=== PATIENT | female | born 1985 | race Caucasian/White ===

== ENCOUNTER 2023-05-12 22:01 | Emergency (ER) | payer SELFPAY ==
[2023-05-12 22:10] VITALS: BP 170/68; PULSE 118; RESP 20; TEMP 36.4; O2SAT 100; BMI 25.7
[2023-05-12 22:23] VITALS: BP 127/70; PULSE 116; RESP 20; TEMP 36.9; O2SAT 100
--- NOTE | 2023-05-12 22:35 | ED.GIBLEED ---
HPI - GI Bleed General Chief complaint: GI Bleed Stated complaint: Bleeding, symptoms from blood thinners Time Seen by Provider: 05/12/23 22:21 Source: patient Mode of arrival: ambulatory Limitations: no limitations History of Present Illness HPI Narrative: Patient comes to the emergency room complaining of abdominal pain in GI bleed. 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 Patient also has history of antiphospholipid antibody syndrome and sickle cell trait. Patient is on Eliquis for the above-mentioned reasons. Today, patient states that she was at work, she had a sudden gush of bright red blood per rectum and blood clots. Patient complaining of diffuse abdominal pain. Patient denies fever or chills. Related Data Allergies Allergy/AdvReac Type Severity Reaction Status Date / Time Iodinated Contrast Media Allergy Rash Verified 05/12/23 22:09 [IV Contrast Dye] morphine Allergy Rash Verified 05/12/23 22:09 Review of Systems Review of Systems: Constitutional : No Weight loss, No Fever, No Chills, No Night Sweats, No Fatigue, No Malaise ENT/Mouth : No Hearing loss, No Ear Pain, No Nasal Congestion, No Sinus Pain, No Hoarseness, No sore throat, No Rhinorrhea, No Swallowing Difficulty Eyes: No Eye Pain, No Swelling, No Redness, No Foreign Body, No Discharge, No Vision Changes Cardiovascular : No Chest Pain, No SOB, No Dyspnea on Exertion, No Orthopnea, No Edema, No Palpitations Respiratory : No Cough, No Sputum, No Wheezing, No Smoke Exposure, No Dyspnea Gastrointestinal : No Nausea, No Vomiting, No Diarrhea, complaining of diffuse abdominal pain, fresh red blood per rectum Genitourinary : no irregular bleeding, No Dysuria, No Urinary Frequency, No Hematuria, No Urinary Incontinence, No Urgency, No Flank Pain, No Urinary Flow Changes, No Hesitancy Musculoskeletal : No joint pain, No Myalgias, No Joint Swelling Skin : No Skin Lesions, No rash Neuro : No Weakness, No Numbness, No Paresthesias, No Loss of Consciousness, No Dizziness, No Headache Psych : No Anxiety/Panic, No Depression, No SI/HI/AH/VH, No Social Issues, Heme/Lymph: No Bruising, No Bleeding,No Lymphadenopathy Endocrine : No Polyuria, No Polydipsia, No Temperature Intolerance [facility] Past Medical History Medical History (Updated 05/13/23 @ 03:34 by Cassie Rosa MD) 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 Sickle cell trait Antiphospholipid syndrome Surgical History (Updated 05/12/23 @ 22:39 by Cassie Rosa MD) History of hysterectomy H/O resection of small bowel Social History Social History Alcohol intake: never Smoked in Last 30 Days: No Use of substances other than those prescribed or required for medical reasons: No Advance Directives: No Advance Directives Information Provided: Yes Patient : No Physical Exam Vital Signs: Vital Signs: Last Vital Signs Temp 98.5 F 05/13/23 00:06 Pulse 90 05/13/23 02:55 Resp 18 05/13/23 02:55 BP 103/64 05/13/23 02:55 Pulse Ox 97 05/13/23 02:55 O2 Del Method Room Air 05/13/23 02:55 BMI result Body Mass Index 25.7 Course Course Course Narrative: -patient states that she has history allergic reaction to iodine, rash. However, patient states that if she gets premedicated, she can tolerate contrast well. -this time, patient being premedicated with Solu-Medrol, Pepcid, Benadryl. Also receiving IV fluids and Dilaudid -all of patient's labs and imaging pending Medications Administered Discontinued Medications Generic Name Dose Route Start Last Admin Trade Name Zarina PRN Reason Stop Dose Admin Diphenhydramine HCl 50 mg 05/12/23 22:31 05/12/23 23:01 Diphenhydramine Hcl 50 Mg/Ml Vial IVPUSH 05/12/23 22:32 50 mg ONCE ONE Administration Diphenhydramine HCl 25 mg 05/13/23 00:35 05/13/23 00:53 Diphenhydramine Hcl 50 Mg/Ml Vial IVPUSH 05/13/23 00:36 25 mg ONCE ONE Administration Famotidine 20 mg 05/12/23 22:31 05/12/23 23:01 Famotidine/Pf 20 Mg/2 Ml Vial IVPUSH 05/12/23 22:32 20 mg ONCE ONE Administration Hydromorphone HCl 1 mg 05/12/23 22:31 05/12/23 22:49 Hydromorphone Hcl 1 Mg/Ml Syringe IVPUSH 10/07/23 22:32 1 mg ONCE ONE Administration Protocol Hydromorphone HCl 1 mg 05/12/23 23:27 05/12/23 23:39 Hydromorphone Hcl 1 Mg/Ml Syringe IVPUSH 05/12/23 23:28 1 mg ONCE ONE Administration Protocol Hydromorphone HCl 1 mg 05/13/23 02:37 05/13/23 02:56 Hydromorphone Hcl 1 Mg/Ml Syringe IVPUSH 05/13/23 02:38 1 mg ONCE ONE Administration Protocol Sodium Chloride 1,000 mls @ 999 mls/hr 05/12/23 22:23 05/12/23 22:53 Ns IVCONT 05/12/23 23:23 999 mls/hr .Q1H1M ONE Administration Iohexol 85 ml 05/13/23 00:38 05/13/23 00:39 Iohexol 350 Mg/Ml 100 Ml Infus..Btl IV 05/13/23 00:39 85 ml ONCE ONE Administration Methylprednisolone Sodium Succinate 125 mg 05/12/23 22:31 05/12/23 22:56 Methylprednisolone Sod Succ 125 Mg/2 Ml Vial IVPUSH 05/12/23 22:32 125 mg ONCE ONE Administration Ondansetron HCl 4 mg 05/12/23 22:31 05/12/23 22:50 Ondansetron Hcl 4 Mg/2 Ml Vial IVPUSH 05/12/23 22:32 4 mg ONCE ONE Administration Medical Decision Making Medical Decision Making MDM Narrative: -patient's hemoglobin 8. Per patient, her baseline is 9. Discussed with the patient risks versus benefits of getting transfused, patient states she has a transfusion in the past, agreeable to get transfused. Consent signed -CT scan my interpretation: no SBO, difficult to assess if there is a GI bleed, patient had radiology study 2 days ago under still contrast -patient was checked multiple times by the nurse, patient does not seem to have any active GI bleed. -for pain management, patient received 1 dose of IV Dilaudid. Patient told her nurse that if she would not get a 2nd dose of Dilaudid, she will refuse blood transfusion. Patient did get a 2nd dose of Dilaudid. -I discussed the patient with Dr. Washburn,who agreed to admit the patient. -for admission purposes and continuity of care, Dr. Washburn asked the patient where she was getting her prescriptions from (pharmacy), who prescribes Dilaudid for her, who her primary care physician is, where we can get records about her current conditions including sickle cell and antiphospholipid syndrome. -I was informed by Dr. Washburn that the patient did not consent to have her medical records requested from and any facility. Patient told Dr. Washburn that she does not recall the name of the physician who prescribes her Dilaudid. -patient stated that she was uncomfortable answering these questions and requested to leave against medical advice -I was then informed by Dr. Washburn that when the 2nd hemoglobin level returned, Dr. Washburn called the patient's cell phone number. A male voice answered the phone, it was the wrong phone number. Differential Diagnosis Differential Diagnoses: The differential diagnosis associated with the presentation includes (Mesenteric ischemia, upper GI bleed, lower GI bleed) Admission/Observation Consideration of admission/observation: Escalation of care including admission/observation considered Consult Healthcare Provider Management of the patient was discussed with: Hospitalist Lab Data MDM Lab Attestation statement: I reviewed the patient's lab results. 05/13/23 03:22 05/12/23 22:26 Labs: Lab Results 05/12/23 05/12/23 05/13/23 Range/Units 22:26 23:29 00:55 WBC 4.7 L (4.8-10.8) X10*3/uL RBC 2.98 L (4.20-5.50) X10*6/uL Hgb 8.0 L (12.0-16.0) g/dl Hct 26.3 L (37.0-47.0) % MCV 88.3 (80.0-98.0) fL MCH 26.8 L (27.0-33.0) pg MCHC 30.4 L (31.0-35.0) g/dl RDW 17.2 H (11.0-16.0) % Plt Count 184 (160-400) X10*3/uL MPV 10.3 (9.4-12.3) fL Immature Gran % (Auto) 0.4 (0.0-0.4) % Neut % (Auto) 61.4 (45-73) % Lymph % (Auto) 20.4 (20-40) % [place] % (Auto) 12.7 H (2-11) % Eos % (Auto) 4.9 H (0-4) % Baso % (Auto) 0.2 (0-2) % Lymph # (Auto) 1.0 L (1.2-4.9) X10*3/uL [place] # (Auto) 0.6 (0.1-1.2) X10*3/uL Eos # (Auto) 0.2 (0.0-0.4) X10*3/uL Baso # (Auto) 0.0 (0.0-0.2) X10*3/uL Abs Immat Gran (auto) 0.02 (0.00-0.03) X10*3/uL Absolute Neuts (auto) 2.9 (2.0-8.3) x10*3/uL Absolute Nucleated RBC 0.000 (0.0-0.012) X10*3/uL Nucleated RBC % (auto) 0.0 (0.0-0.2) /100WBC Smear Tech's Comments Sodium 141 (135-145) mmol/L Potassium 3.9 (3.3-5.1) mmol/L Chloride 109 H (96-108) mmol/L Carbon Dioxide 23 (22-29) mmol/L Anion Gap 13 (12-20) BUN 10 (9-16) mg/dL Creatinine 0.72 (0.5-1.4) mg/dL Estim Creat Clear Calc 96.6 Estimated GFR > 60 Random Glucose 152 H (60-115) mg/dL Lactic Acid 1.9 (0.5-2.0) mmol/L Calcium 9.3 (8.4-10.2) mg/dL Total Bilirubin 0.2 (0.0-1.0) mg/dL Direct Bilirubin < 0.2 (0.0-0.5) mg/dL AST 11 (5-31) U/L ALT 11 (0-31) U/L Alkaline Phosphatase 52 (39-117) U/L Total Protein 6.5 (6.5-8.0) g/dL Albumin 4.1 (3.5-5.0) g/dL Beta HCG, Quant < 2 mIU/mL Urine Color Yellow Urine Appearance Clear Urine pH 6.0 (5.0-9.0) Ur Specific [place] >= 1.030 H (1.005-1.025) Urine Protein Negative (Neg-Trace) mg/dL Urine Glucose (UA) Negative (Negative) mg/dL Urine Ketones Negative (Negative) mg/dL Urine Blood Moderate (2+) H (Negative) Urine Nitrite Negative (Negative) Ur Leukocyte Esterase Small (1+) H (Negative) Urine RBC 0-2 (0-2) /HPF Urine WBC 6-10 H (0-5) /HPF Ur Squamous Epith Cells 0-2 (0-2) /HPF Urine Bacteria None Seen (None Seen) Hyaline Casts 0-2 (0-2) /LPF Blood Type A Positive Antibody Screen NEGATIVE Crossmatch See Detail 05/13/23 Range/Units 03:22 WBC 5.1 (4.8-10.8) X10*3/uL RBC 2.77 L (4.20-5.50) X10*6/uL Hgb 7.5 L (12.0-16.0) g/dl Hct 24.0 L (37.0-47.0) % MCV 86.6 (80.0-98.0) fL MCH 27.1 (27.0-33.0) pg MCHC 31.3 (31.0-35.0) g/dl RDW 17.2 H (11.0-16.0) % Plt Count 162 (160-400) X10*3/uL MPV 9.3 L (9.4-12.3) fL Immature Gran % (Auto) 1.0 H (0.0-0.4) % Neut % (Auto) 94.1 H (45-73) % Lymph % (Auto) 3.5 L (20-40) % [place] % (Auto) 1.2 L (2-11) % Eos % (Auto) 0.2 (0-4) % Baso % (Auto) 0.0 (0-2) % Lymph # (Auto) 0.2 L (1.2-4.9) X10*3/uL [place] # (Auto) 0.1 (0.1-1.2) X10*3/uL Eos # (Auto) 0.0 (0.0-0.4) X10*3/uL Baso # (Auto) 0.0 (0.0-0.2) X10*3/uL Abs Immat Gran (auto) 0.05 H (0.00-0.03) X10*3/uL Absolute Neuts (auto) 4.8 (2.0-8.3) x10*3/uL Absolute Nucleated RBC 0.000 (0.0-0.012) X10*3/uL Nucleated RBC % (auto) 0.0 (0.0-0.2) /100WBC Smear Tech's Comments VERIFIED Sodium (135-145) mmol/L Potassium (3.3-5.1) mmol/L Chloride (96-108) mmol/L Carbon Dioxide (22-29) mmol/L Anion Gap (12-20) BUN (9-16) mg/dL Creatinine (0.5-1.4) mg/dL Estim Creat Clear Calc Estimated GFR Random Glucose (60-115) mg/dL Lactic Acid (0.5-2.0) mmol/L Calcium (8.4-10.2) mg/dL Total Bilirubin (0.0-1.0) mg/dL Direct Bilirubin (0.0-0.5) mg/dL AST (5-31) U/L ALT (0-31) U/L Alkaline Phosphatase (39-117) U/L Total Protein (6.5-8.0) g/dL Albumin (3.5-5.0) g/dL Beta HCG, Quant mIU/mL Urine Color Urine Appearance Urine pH (5.0-9.0) Ur Specific [place] (1.005-1.025) Urine Protein (Neg-Trace) mg/dL Urine Glucose (UA) (Negative) mg/dL Urine Ketones (Negative) mg/dL Urine Blood (Negative) Urine Nitrite (Negative) Ur Leukocyte Esterase (Negative) Urine RBC (0-2) /HPF Urine WBC (0-5) /HPF Ur Squamous Epith Cells (0-2) /HPF Urine Bacteria (None Seen) Hyaline Casts (0-2) /LPF Blood Type Antibody Screen Crossmatch Independent Interpretation I performed an independent interpretation of an: CT Scan Interpretation: FINDINGS: LUNG BASES: The visualized lung bases are unremarkable. LIVER, GALLBLADDER, AND BILIARY TREE: The liver is normal in size, shape, and attenuation. No focal hepatic lesion or biliary ductal dilatation is present. There has been a prior cholecystectomy PANCREAS: Unremarkable. SPLEEN: Unremarkable. ADRENAL GLANDS: Unremarkable. KIDNEYS AND URETERS: The kidneys are normal in size, shape, and attenuation. No hydronephrosis, hydroureter, or calculi seen. No perinephric stranding. BLADDER: There is mild urinary bladder wall thickening. GASTROINTESTINAL TRACT: There is retained stool throughout. The appendix is not confidently seen as a separate structure. Contrast material within the rectum from prior procedure limits evaluation. There is no definitive evidence for active GI bleeding. ABDOMINAL WALL: No significant hernia is appreciated. LYMPH NODES: Normal. VASCULAR: Mesenteric stent grafts are noted partially extending into the aortic lumen. PELVIC VISCERA: Unremarkable. OSSEOUS STRUCTURES: Unremarkable. CT/CT gi bleed abd pel wo/w IVcon IMPRESSION: Retained stool throughout the colon. Retained contrast material from prior procedures limits evaluation for active GI bleeding. No definitive evidence for active GI bleeding. Urinary bladder wall thickening needs correlation with urinalysis. Fleischner guidelines were utilized. Radiology Impression Discussion of test interpretation with radiology: I have reviewed the radiologist's reading. Critical Care Time Critical Care Time Critical Care Time: Yes Total Critical Care Time: 75 Attestation: I have personally provided critical care time. Time includes review of lab data, radiology results, discussion with consultants, and monitoring for potential decompensation. Intervention performed as documented. Discharge Plan Discharge Clinical Impression: GI bleed, Anemia Patient Disposition: Left Against Medical Advice Stand Alone Forms: Against Medical Advice Interventions: ED Discharge Assessment Last Done: 05/13/23 04:01 Discharge Date/Time: 05/13/23 04:22
[2023-05-13 00:06] VITALS: BP 105/69; PULSE 91; RESP 16; TEMP 36.9; O2SAT 100
--- NOTE | 2023-05-13 02:05 | PC.NURSE ---
notified by hematology blood product is ready, while at bedside completing tow picker form pt requested to speak to provider again before receiving blood product. MD Rosa notified. ligia pickup form until further notification from provider.
--- NOTE | 2023-05-13 02:23 | PC.NURSE ---
Pt refusing vital signs at this time, stating that [her] is on the way here and requesting to be discharged. MD Rosa aware.
--- NOTE | 2023-05-13 02:24 | MHC.EDTECH ---
patient refused 0200 vitals, FAYE Jeffrey and FAYE Mabry aware.
[2023-05-13 02:55] VITALS: BP 103/64; PULSE 90; RESP 18; O2SAT 97
--- NOTE | 2023-05-13 03:17 | PC.NURSE ---
Pt stating she receives prescription refills through [facility] in [place], . Pharmacy closed at this time.
[2023-05-13 03:28] LABS: Eosinophils Percent Auto 0.2 % (0-4); Hemoglobin 7.5 g/dl (12.0-16.0); Imm Gran Abs Auto 0.05 X10*3/uL (0.00-0.03); Lymphocytes Absolute Auto 0.2 X10*3/uL (1.2-4.9); Lymphocytes Percent Auto 3.5 % (20-40); Mean Corpuscular HGB Conc 31.3 g/dl (31.0-35.0); Mean Corpuscular Hemoglobin 27.1 pg (27.0-33.0); Mean Corpuscular Volume 86.6 fL (80.0-98.0); Mean Platelet Volume 9.3 fL (9.4-12.3); Monocytes Absolute Auto 0.1 X10*3/uL (0.1-1.2); Monocytes Percent Auto 1.2 % (2-11); Neutrophils Absolute Auto 4.8 x10*3/uL (2.0-8.3); Neutrophils Percent Auto 94.1 % (45-73); Platelet Count 162 X10*3/uL (160-400); Red Blood Count 2.77 X10*6/uL (4.20-5.50); Red Cell Distribution Width 17.2 % (11.0-16.0); SCAN SMEAR FLAG 1; White Blood Count 5.1 X10*3/uL (4.8-10.8)
[2023-05-13 03:29] LABS: MANUAL DIFF FLAG SCAN
--- NOTE | 2023-05-13 03:38 | PC.NURSE ---
Inpatient provider at bedside for assessment. This RN at bedside to draw additional labs. pt stated to inpatient provider that she wished to leave AMA. This RN requested further information from patient, and patient stated that she did not feel she would receive adequate treatment here. Pt refused additional treatments including ordered RBC's until she had received her home dose of IV and PO Dilaudid (2mg and 4mg respectively), but refused to identify her prescriber. Per MD's Maddison and Moe, pt able to sign AMA forms. Pt offered AMA form and refused to sign. Per MD Rosa, port access to remain in patient - pt arrived with port accessed, replaced by this RN as inappropriate for CT contrast media. Pt escorted to waiting room by this RN, steady gait, no respiratory distress, with no further complications.
[2023-05-13 03:48] LABS: SLIDE REVIEW VERIFIED
--- NOTE | 2023-05-13 04:13 | P.EN_ITS ---
Event Note Date of Service: 05/13/23 Event Note: Consulted by the ED to admit patient for GIB. Pt reported has history of systemic lupus, antiphospholipid antibody syndrome, sickle cell and take Plavix 75 and Xarelto 20, and Dilaudid 4 mg. 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 She had no identification with her at registration. She has no PCP, she's not able provider who prescribe her meds. No record can be located through [facility], she later state she uses [facility], she would not consent for her medical record to be requested. Her hgb was 8, she says her baseline is 9, she would not get blood transfusion unless she receives more pain medication, she has been given 3 mg of Dilaudid. Since it has been nearly 4 hours since last blood draw, repeat CBC was requested. While continue my evaluation and asking standard questions, she stated didn't want to be admitted and was leaving; she was advised to stay for treatment as her condition can get worse, with more bleeding that can jeopardized her her and even possibly . She was of sound mind alert, oriented to self, place time and left anyway and declined admission, ED provider aware of pt declining admission. Lab came later with repeat Hemoglobin 0f 7.5. I called her number [phone], the call was answered by a male voice who said he had no knolwdge of an Bhavana Edmonds. Time Spent With Patient Time: Total time managing care of this patient today ____ minutes.
== END 2023-05-13 04:22 | disposition left against medical advice (07) ==
PROVIDERS: Internal Medicine; Emergency Provider Emergency Medicine
DX: K92.2 Gastrointestinal hemorrhage, unspecified (principal); D64.9 Anemia, unspecified; N39.0 Urinary tract infection, site not specified; D68.61 Antiphospholipid syndrome; D57.3 Sickle-cell trait; Z79.01 Long term (current) use of anticoagulants
CPT/HCPCS: 36415; 71045; 74178; 80048; 80076; 81001; 83605; 84702; 85025; 86850; 86900; 86901; 86923; 87040; 87077; 87086; 87147; 87186; 87205; 96361; 96374; 96375; 96376; 99284; J1170; J1200; J2405; J2930; Q9967